=== PATIENT | female | born 1930 | race Caucasian/White ===

== ENCOUNTER 2017-11-08 15:36 | Inpatient (IN) | payer MEDICARE, MEDICAID ==
[~2017-11-08] VITALS: Ht 160 cm; Wt 63.0 kg
[~2017-11-08 15:36] MED LIST: ACET-868 PO; BISA10SU8 RC; CHOL10002 PO; CRAN405C PO; ESOM40CA PO; HYDR-3974 PO; LEVO50TA PO; LISI10TA5 PO; MAGN400O6 PO; MAGN400T6 PO; MULT1TAB11 PO; NA P133E RC; SOLI5TAB2 PO
--- NOTE | 2017-11-08 15:37 | NUR ---
HARMONY FROM HOME DT SOB. PATIENT RECEIVED ON 02 VIA NC @6LPM SATING WELL AT THIS TIME. PATIENT IS CURRENTLY ON ATB. SKIN IS WARM TO TOUCH AND NON DIAPHORETIC. PATIENT IS AFEBRILE. CONNECTED PATIENT TO TELE MONITOR. PENDING MD VARGHESE
[2017-11-08] MEDS ORDERED: ALBUTEROL FS 2.5 MG/3 ML VIAL.NEB ONE (16:00)
[2017-11-08] MEDS ORDERED: IPRATROPIUM NEB FS 0.5 MG/2.5 ML AMPUL.NEB NEB ONE (16:00)
[2017-11-08] MEDS ORDERED: IPRATROPIUM NEB FS 0.5 MG/2.5 ML AMPUL.NEB ONE (16:00)
[2017-11-08] MEDS ORDERED: ALBUTEROL SULFATE 8 GM HFA.AER.AD IH ONE (16:00)
[2017-11-08 16:13] LABS: BASOPHILS % (AUTO) 0.2 % (0.0-2.0); EOSINOPHILS % (AUTO) 0.2 % (0.0-6.0); HEMATOCRIT 36 % (33-45); HEMOGLOBIN 12.4 g/dL (11.5-14.8); LYMPHOCYTES # (AUTO) 1.4 /CMM (0.8-4.8); LYMPHOCYTES % (AUTO) 7.3 % (20.0-44.0); MEAN CORPUSCULAR HGB CONC 34 g/dl (31.0-36.0); MEAN CORPUSCULAR VOLUME 84 fL (82-100); MONOCYTES # (AUTO) 1.4 /CMM (0.1-1.30); MONOCYTES % (AUTO) 7.5 % (2.0-12.0); NEUTROPHILS # (AUTO) 16.1 /CMM (1.8-8.9); NEUTROPHILS % (AUTO) 84.8 % (43.0-81.0); PLATELET COUNT (AUTO) 395 /CMM (150-450); RDW COEFFICIENT OF VARIATION 13.6 (11.5-15.0); RED BLOOD CELL COUNT(AUTO) 4.29 MIL/uL (4.0-5.2); WHITE BLOOD COUNT (AUTO) 18.9 K/uL (4.3-11.0)
[2017-11-08 16:22] LABS: CALCIUM, SERUM 8.6 mg/dL (8.5-10.1); CARBON DIOXIDE 24 mmol/L (21-32); CHLORIDE 101 mmol/L (98-107); GLUCOSE 163 mg/dL (74-106); POTASSIUM 4.1 mmol/L (3.5-5.1); SODIUM SERUM 135 mmol/L (136-145); UREA NITROGEN, BLOOD 45 mg/dL (7-18)
[2017-11-08 16:27] LABS: INR 1.03 (0.85-1.15)
[2017-11-08 16:32] LABS: TROPONIN I < 0.017 ng/mL (0.00-0.056)
[2017-11-08] MEDS ORDERED: CEFTRIAXONE 1 G in IV D5W 50 ML IV ONE (18:00)
[2017-11-08] MEDS ORDERED: AZITHROMYCIN 500 MG in IV D5W 250 ML IV ONE (18:00)
[2017-11-08] MEDS ORDERED: CEFTRIAXONE 1GM BAG (ER ONLY) 50 ML IV ONE (18:07)
--- NOTE | 2017-11-08 18:08 | NUR ---
PAGED DR HONG DIEGO.
--- NOTE | 2017-11-08 18:09 | NUR ---
CALLED NURSING TERMINAL CLERK AND REQUESTED A TELE BED FOR THIS PT.
[2017-11-08] MEDS ORDERED: SENN-167 PO (18:35)
[2017-11-08] MEDS ORDERED: ALBU1.257 IH (18:35)
[2017-11-08] MEDS ORDERED: FAMO20TA8 PO (18:35)
[2017-11-08] MEDS ORDERED: TRAM50TA2 PO (18:35)
[2017-11-08] MEDS ORDERED: ASCO500T9 PO (18:35)
[2017-11-08] MEDS ORDERED: LORA10TA7 PO (18:35)
[2017-11-08] MEDS ORDERED: OXYB5TAB11 PO (18:35)
[2017-11-08] MEDS ORDERED: DOCU250C14 PO (18:35)
[2017-11-08] MEDS ORDERED: GUAI-671 PO (18:35)
--- NOTE | 2017-11-08 18:55 | NUR ---
PT IS ASSIGNED TO MED SURG RM#: [id number], PT IS DIAGNOSED WITH PNEUMONIA, AND DR HONG DIEGO IS THE ACCEPTING MD.
--- NOTE | 2017-11-08 19:17 | NUR ---
GAVE REPORT TO MIGUEL ANGEL POP PNEUMONIA DNR ON POLST FORM DR HONG DIEGO ACCEPTING
--- NOTE | 2017-11-08 19:28 | NUR ---
RECEIVED REPORT FROM DONN OLIVEROS FOR [facility].
[2017-11-08 19:40] VITALS: BP 127/61
--- NOTE | 2017-11-08 19:45 | NUR ---
MS UTILITY AIRCREWMAN NOTES RECEIVED FROM ER PER TAM A/O X2 UNDER THE SERVICE OF DR HONG DIEGO,DIAGNOSIS OF PNEUMONIA,ACCOMPANIED BY SON CHUY AND ZETTA DAUGHTER IN LAW.BREATHING NON LABORED,DOMINISHED ON BOTH LOWER LUNG FIELD.WITH SLIGHT REDNESS NOTED ON LEFT INNER THIGH AND MULTIPLE SKIN TAGS ON HER CHEST,ABDOMEN AND BACK.NOTED PROTRUDING SPOT ON HER ABDOMEN AND ACCORDING TO DR HONG DIEGO, ITS HER HERNIA.SALINE LOCK LEFT HAND INTACT AND PATENT.CLEANED AND KEPT DRY.FALL RISK PER FAMILY,BED ON LOWEST POSITION AND LOCKED.CALL LIGHT IN REACH.NEEDS ANTICIPATED.
[2017-11-08 20:00] VITALS: BP 127/61
[2017-11-08 20:02] LABS: B-TYPE NATRIURETIC PEPTIDE 1189 PG/ML (0-125)
[2017-11-08 20:51] LABS: BILIRUBIN,DIRECT 0.1 mg/dL (0.0-0.2); BILIRUBIN,TOTAL 0.3 mg/dL (0.2-1.0)
[2017-11-08] MEDS ORDERED: GUAIFENESIN/CODEINE 10 ML UDC PO PRN (21:00)
[2017-11-08] MEDS ORDERED: NA PHOS,M-B/NA PHOS,DI-BA 1 EA ENEMA RC PRN (21:00)
[2017-11-08] MEDS ORDERED: MAGNESIUM HYDROXIDE 30 ML UDC PO PRN (21:00)
[2017-11-08] MEDS ORDERED: ACETAMINOPHEN 325 MG TABLET PO PRN (21:00)
[2017-11-08] MEDS ORDERED: ZITHROMAX 500 MG/250 ML D5W IV SCH ×2 (21:00)
[2017-11-08] MEDS ORDERED: TRAMADOL HCL 50 MG TABLET PO PRN (21:00)
[2017-11-08] MEDS ORDERED: BISACODYL SUPP (10 MG) 10 MG/SUPP.RECT SUPP.RECT RC PRN (21:00)
--- NOTE | 2017-11-08 21:10 | NUR ---
MS RN NOTES REPORTED BT LAB,LACTIC ACID WAS 6.3,HIGH COMPARE TO 5.2 IN ER.NO IV CHALLENGE GIVEN.
--- NOTE | 2017-11-08 21:40 | NUR ---
MS RN NOTES DR HONG DIEGO WAS PAGE AND MADE AWARE OF PATIENT CURRENT LACTIC ACID,WITH NEW ORDER TO GIVE NS 1LITER AT 200ML/HR OVER 5 HOURS THE REDUCE RATE TO 100ML/HR RATE FOR HYDRATION
[2017-11-08] MEDS: OXYBUTYNIN CHLORIDE 5 MG TABLET PO SCH (21:45)
[2017-11-08] MEDS: SENNOSIDES 8.6 MG TABLET PO SCH (21:45)
--- NOTE | 2017-11-08 21:45 | NUR ---
MS RN NOTES C/O MODERATE ABDOMINAL PAIN 4/10 ON PAIN SCALE,ULTRAM 50MG PO GIVEN WITH APPLE SAUCE TAKEN WELL.
[2017-11-08] MEDS ORDERED: IV NS 0.9% 1,000 ML IV ONE (22:00)
[2017-11-09] MEDS ORDERED: ALBUTEROL HALF STRENGTH 1.25 MG/3 ML VIAL.NEB IH SCH (01:30)
--- NOTE | 2017-11-09 01:30 | NUR ---
MS RN NOTES SOUND CONGESTED ON AUSCULTATION,BREATHING TREATMENT ADMINISTERED BT RT DON ORDERED PRN.
[2017-11-09] MEDS: IPRATROPIUM NEB FS 0.5 MG/2.5 ML AMPUL.NEB NEB PRN ×2 (01:41→10:19)
[2017-11-09] MEDS: ALBUTEROL FS 2.5 MG/0.5 ML VIAL.NEB NEB PRN ×2 (01:41→10:19)
[2017-11-09] MEDS: ACETAMINOPHEN 325 MG TABLET PO PRN (02:12)
--- NOTE | 2017-11-09 02:12 | NUR ---
MS RN NOTES INCREASE TEMP OF 100.1,TYLENOL 650MG PO GIVEN WITH APPLE SAUCE TAKEN WELL
--- NOTE | 2017-11-09 02:15 | NUR ---
MS RN NOTES WITH ORAL TEMP OF 100.1,TYLENOL 650MG PO GIVEN WITH APPLE SAUCE,TAKEN WELL.
--- NOTE | 2017-11-09 02:17 | NUR ---
MS RN NOTES CALM AND QUIET THIS TIME,CONTINUE WITH COOLING MEASURES.
--- NOTE | 2017-11-09 04:00 | NUR ---
MS RN NOTES ORAL TEMP RE CHECK WAS 98.4
[2017-11-09] MEDS: IV NS 0.9% 1,000 ML IV PRN (04:27)
--- NOTE | 2017-11-09 06:04 | NUR ---
MS RN NOTES NO FEVER THIS TIME,CALM AND QUIET ON BED,REGULAR IVF INFUSING WELL ON LEFT ARM.NO SOB,BREATHING TREATMENT TOLERATED WELL.IN NO ACUTE DISTRESS.DNR/DNI STATUS.CALL LIGHT IN REACH,NEEDS ATTENDED. WILL ENDORSE TO DAY NURSE FOR [facility].
[2017-11-09 06:13] LABS: EOSINOPHILS % (AUTO) 0.2 % (0.0-6.0); HEMATOCRIT 29 % (33-45); HEMOGLOBIN 9.9 g/dL (11.5-14.8); LYMPHOCYTES # (AUTO) 1.2 /CMM (0.8-4.8); LYMPHOCYTES % (AUTO) 7.2 % (20.0-44.0); MEAN CORPUSCULAR HGB CONC 34 g/dl (31.0-36.0); MEAN CORPUSCULAR VOLUME 85 fL (82-100); MONOCYTES % (AUTO) 6.1 % (2.0-12.0); NEUTROPHILS # (AUTO) 14.7 /CMM (1.8-8.9); NEUTROPHILS % (AUTO) 86.5 % (43.0-81.0); PLATELET COUNT (AUTO) 318 /CMM (150-450); RDW COEFFICIENT OF VARIATION 14.3 (11.5-15.0); RED BLOOD CELL COUNT(AUTO) 3.42 MIL/uL (4.0-5.2)
[2017-11-09 06:31] LABS: CALCIUM, SERUM 8.4 mg/dL (8.5-10.1); CARBON DIOXIDE 26 mmol/L (21-32); CHLORIDE 106 mmol/L (98-107); CREATININE 0.7 mg/dL (0.6-1.3); GLUCOSE 123 mg/dL (74-106); SODIUM SERUM 141 mmol/L (136-145); UREA NITROGEN, BLOOD 32 mg/dL (7-18)
--- NOTE | 2017-11-09 07:30 | NUR ---
PT RECEIVED RESTING COMFORTABLY IN BED. NO S/S OR C/O PAIN OR DISTRESS NOTED. SIDE RAILS UP X2, CALL LIGHT LEFT WITHIN REACH. WILL CONTINUE PLAN OF CARE.
[2017-11-09 07:58] VITALS: BP 123/64
[2017-11-09 07:59] LABS: LYMPHOCYTES % (MANUAL) 7 % (16-48); MONOCYTES % (MANUAL) 10 % (0-11.0); NEUTROPHILS % (MANUAL) 83 (42-76)
[2017-11-09] MEDS: MAGNESIUM OXIDE 400 MG TABLET PO SCH (08:15)
[2017-11-09] MEDS: LEVOTHYROXINE SODIUM 50 MCG TABLET PO SCH (08:16)
[2017-11-09] MEDS: FAMOTIDINE (20 MG) 20 MG TABLET PO SCH ×2 (08:16→17:01)
[2017-11-09] MEDS: OXYBUTYNIN CHLORIDE 5 MG TABLET PO SCH ×3 (08:16→21:14)
[2017-11-09] MEDS: MULTIVIT, IRON, MIN NO. 8, FA 1 TAB PO SCH (08:16)
[2017-11-09] MEDS: ASCORBIC ACID 500 MG TABLET PO SCH (08:16)
[2017-11-09] MEDS: DOCUSATE SODIUM 250 MG CAPSULE PO SCH ×2 (08:16→17:01)
[2017-11-09] MEDS: CHOLECALCIFEROL 1,000 UNIT TABLET (VIT D3) PO SCH (08:16)
[2017-11-09] MEDS: LISINOPRIL (10MG) 10 MG TABLET PO SCH (08:16)
[2017-11-09] MEDS: LORATADINE 10 MG TABLET PO SCH (08:16)
[2017-11-09] MEDS ORDERED: SOLIFENACIN SUCCINATE 5 MG TABLET PO SCH (09:00)
[2017-11-09] MEDS ORDERED: Medication Not On Formulary EA (Cranberry Extract (Cranberry) 405 MG) PO SCH (09:00)
[2017-11-09] MEDS: IPRATROPIUM NEB FS 0.5 MG/2.5 ML AMPUL.NEB NEB SCH ×4 (12:00→23:29)
[2017-11-09] MEDS: ALBUTEROL FS 2.5 MG/0.5 ML VIAL.NEB NEB SCH ×4 (12:00→23:28)
[2017-11-09] MEDS: ENSURE ENLIVE 237 ML LIQUID (VANILLA) PO SCH ×2 (13:00→18:44)
[2017-11-09] MEDS: HYDROCODONE/APAP 5/325MG 1 EACH TABLET PO PRN (13:04)
[2017-11-09] MEDS: ENOXAPARIN SODIUM 40 MG/0.4 ML DISP.SYRIN SQ SCH (14:19)
[2017-11-09] MEDS: ACETYLCYSTEINE 10% SOLN 400 MG/4 ML VIAL NEB SCH ×2 (15:28→23:29)
[2017-11-09 15:51] VITALS: BP 137/68
[2017-11-09] MEDS: CEFTRIAXONE 1 G in IV D5W 50 ML IV SCH (17:01)
[2017-11-09] MEDS: ZITHROMAX 500 MG/250 ML D5W IV SCH ×2 (17:43)
--- NOTE | 2017-11-09 18:54 | NUR ---
CHANGE OF SHIFT REPORT PT RESTING COMFORTABLY IN BED. NO S/S OR C/O PAIN OR DISTRESS NOTED. SIDE RAILS UP X2, CALL LIGHT LEFT WITHIN REACH. PT KEPT CLEAN, DRY, AND COMFORTABLE. NO SIGNIFICANT CHANGES SINCE PREVIOUS SHIFT. WILL GIVE REPORT TO [facility] POP.
[2017-11-09 20:00] VITALS: BP 116/59
[2017-11-09] MEDS: SENNOSIDES 8.6 MG TABLET PO SCH ×2 (21:14→21:20)
[2017-11-10] MEDS: IPRATROPIUM NEB FS 0.5 MG/2.5 ML AMPUL.NEB NEB SCH ×6 (03:14→23:18)
[2017-11-10] MEDS: ALBUTEROL FS 2.5 MG/0.5 ML VIAL.NEB NEB SCH ×6 (03:15→23:18)
[2017-11-10 06:05] LABS: BASOPHILS % (AUTO) 0.1 % (0.0-2.0); EOSINOPHILS % (AUTO) 0.8 % (0.0-6.0); HEMATOCRIT 30 % (33-45); LYMPHOCYTES # (AUTO) 1.2 /CMM (0.8-4.8); LYMPHOCYTES % (AUTO) 8.1 % (20.0-44.0); MEAN CORPUSCULAR HGB CONC 34 g/dl (31.0-36.0); MEAN CORPUSCULAR VOLUME 85 fL (82-100); MONOCYTES # (AUTO) 0.9 /CMM (0.1-1.30); MONOCYTES % (AUTO) 5.9 % (2.0-12.0); NEUTROPHILS # (AUTO) 12.2 /CMM (1.8-8.9); NEUTROPHILS % (AUTO) 85.1 % (43.0-81.0); PLATELET COUNT (AUTO) 322 /CMM (150-450); RDW COEFFICIENT OF VARIATION 14.3 (11.5-15.0); RED BLOOD CELL COUNT(AUTO) 3.48 MIL/uL (4.0-5.2); WHITE BLOOD COUNT (AUTO) 14.3 K/uL (4.3-11.0)
[2017-11-10 06:17] LABS: IRON, SERUM 18 ug/dl (50-175); TOTAL IRON BINDING CAPACITY 112 ug/dl (250-450)
[2017-11-10 06:22] LABS: ALANINE AMINOTRANSFERASE 60 U/L (12-78); ALBUMIN 1.8 g/dL (3.4-5.0); ALKALINE PHOSPHATASE 82 U/L (46-116); ASPARTATE AMINOTRANSFERASE 48 U/L (15-37); BILIRUBIN,TOTAL 0.2 mg/dL (0.2-1.0); CALCIUM, SERUM 8.2 mg/dL (8.5-10.1); CARBON DIOXIDE 29 mmol/L (21-32); CHLORIDE 108 mmol/L (98-107); CREATININE 0.6 mg/dL (0.6-1.3); GLUCOSE 101 mg/dL (74-106); MAGNESIUM 2.2 mg/dL (1.8-2.4); PHOSPHORUS 3.6 mg/dL (2.5-4.9); POTASSIUM 3.9 mmol/L (3.5-5.1); SODIUM SERUM 142 mmol/L (136-145); TOTAL PROTEIN, SERUM 5.8 g/dL (6.4-8.2); UREA NITROGEN, BLOOD 17 mg/dL (7-18)
[2017-11-10 06:36] LABS: FERRITIN 380 ng/mL (8-388); THYROID STIMULATING HORMONE 2.386 uIU/mL (0.358-3.74)
--- NOTE | 2017-11-10 06:40 | NUR ---
MS RN NOTES AWAKE & RESPONSIVE. NOT IN ANY DISTRESS. NO SOB NOTED. DENIES ANY PAIN OR DISCOMFORT AT THIS TIME. WITH IVF INFUSING WELL. AM CARE DONE. MONITORED ACCORDINGLY. CALL LIGHT WITHIN REACH. BED IN LOWEST POSITION. SR UP X 3 FOR SAFETY WITH BED ALARM ON. WILL ENDORSE TO NEXT SHIFT.
--- NOTE | 2017-11-10 07:10 | NUR ---
MSRN RN OPENING NOTES. PT RECEIVED A&0X1, AWAKE AND RESTING IN BED. PT WITH O2 VIA NC AT 4LPM, PT AUSCULTATED WITH BI LAT CRACKLES, PT WITH S/S OF RESP DISTRESS AT THIS TIME. PT DENIES PAIN AND IS WITHOUT S/S OF PAIN OR DISCOMFORT. PT WITH IVC AT R FA INTACT AND OPERATIONAL. PT ASSISTED WITH REPOSITIONING. PT REQUESTING MORE SLEEP. BED IN LOWEST LOCKED POSITION WITH HANDRAILSX2 AND CALL [place] WITHIN REACH. WILL REORIENTATE NEEDED. PT BRIEFED ON TODAY'S POC AND IS WITHOUT CONCERN OR COMPLAINT.
--- NOTE | 2017-11-10 07:29 | NUR ---
MSRN NOTES. PT NOTED WITH DRY NON PRODUCTIVE COUGH.
[2017-11-10 08:23] VITALS: BP 133/58
[2017-11-10] MEDS: FAMOTIDINE (20 MG) 20 MG TABLET PO SCH ×2 (08:24→16:47)
[2017-11-10] MEDS: LEVOTHYROXINE SODIUM 50 MCG TABLET PO SCH (08:24)
[2017-11-10] MEDS: MAGNESIUM OXIDE 400 MG TABLET PO SCH (08:27)
[2017-11-10] MEDS: ASCORBIC ACID 500 MG TABLET PO SCH (08:27)
[2017-11-10] MEDS: LISINOPRIL (10MG) 10 MG TABLET PO SCH (08:28)
[2017-11-10] MEDS: LORATADINE 10 MG TABLET PO SCH (08:28)
[2017-11-10] MEDS: DOCUSATE SODIUM 250 MG CAPSULE PO SCH ×2 (08:28→16:48)
[2017-11-10] MEDS: CHOLECALCIFEROL 1,000 UNIT TABLET (VIT D3) PO SCH (08:28)
[2017-11-10] MEDS: MULTIVIT, IRON, MIN NO. 8, FA 1 TAB PO SCH (08:28)
[2017-11-10] MEDS: OXYBUTYNIN CHLORIDE 5 MG TABLET PO SCH ×2 (08:28→21:12)
[2017-11-10] MEDS: ENSURE ENLIVE 237 ML LIQUID (VANILLA) PO SCH ×3 (08:34→17:47)
[2017-11-10] MEDS: ENOXAPARIN SODIUM 40 MG/0.4 ML DISP.SYRIN SQ SCH (08:36)
[2017-11-10] MEDS: ACETYLCYSTEINE 10% SOLN 400 MG/4 ML VIAL NEB SCH ×3 (08:53→23:18)
--- NOTE | 2017-11-10 10:00 | NUR ---
MSRN NOTES. PT REMOVED IVC, COMPRESSION APPLIED. NAD AT SITE. NEW IVC G#22 PLACED AT R FA.
[2017-11-10] MEDS: HYDROCODONE/APAP 5/325MG 1 EACH TABLET PO PRN (12:28)
[2017-11-10 16:32] VITALS: BP 117/56
--- NOTE | 2017-11-10 17:00 | NUR ---
MSRN NOTES. [facility] CALLED R/T PT ABDOMINAL DISTENSION, 1 EPISODE OF ABDOMINAL PAIN AND NO DOCUMENTED BM FOR 6 DAYS. AWAITING RESPONSE.
[2017-11-10] MEDS: CEFTRIAXONE 1 G in IV D5W 50 ML IV SCH (17:08)
[2017-11-10] MEDS: ZITHROMAX 500 MG/250 ML D5W IV SCH ×2 (17:46)
--- NOTE | 2017-11-10 18:06 | NUR ---
MSRN NOTES. MD GLYNN RETURNED CALL AND INFORMED OF PT STATUS, MD REQUESTING AM KUB, ORDERS PLACED.
--- NOTE | 2017-11-10 18:07 | NUR ---
MSRN CLOSING NOTES. PT REMAINS A&0X1, BUT PT'S CONVERSATION HAS IMPROVED THROUGHOUT SHIFT. PT RESTING WITH FAMILY AT BEDSIDE. PT WITH O2 VIA NC AT 4LPM NO S/S OF RESP DISTRESS, PT DENIES PAIN AT THIS TIME. PT IS WITHOUT BM, NO OB STOOL COLLECTED, PRN LAX ADMINISTERED, WILL ENDORSE TO NIGHT NURSE. PT IVC INTACT AND OPERATIONAL. PT BED IN LOWEST LOCKED POSITION WITH HANDRAILSX2 AND CALL [place] WITHIN REACH. ALL DAY NURSE DUTIES ATTENDED TO AND PT IS WITHOUT CONCERN OR COMPLAINT.
--- NOTE | 2017-11-10 19:30 | NUR ---
RN INITIAL NOTES: RECEIVED REPORT FROM [facility], PT IN BED, AWAKE, A/O X1, TO SELF ONLY, PT A POOR HISTORIAN, ON 2L VIA NC RESPIRATION EVEN AND UNLABORED, PT APPEARS CALM AND COMFORTABLE. PT TO BE ON HOB 45 DEGREE AT ALL TIMES, DUE TO ABDOMINAL HERNIA, AND RISK FOR ASPIRATION. IV ACCESS PATENT AND FLUSHING WELL, INFUSING WITH NS AT 100ML/HR. SITE COVERED WITH BROWN SLEEVES FOR PROTECTION. PT REPORTED TO HAVE NO BM X6 DAYS, MOM GIVEN DURING THE DAY, AWARE, WILL HAVE KUB IN AM, PER RADIOLOGY NO NEED TO PUT PT ON NPO AFTER MIDNIGHT THIS IS JUST REGULAR KUB NO CONTRAST. BED ALARM SECURED. SAFETY PRECAUTIONS FOR FALL INITIATED. CALL LIGHT IN REACH, WILL CONTINUE MONITORING PT.
--- NOTE | 2017-11-10 19:38 | NUR ---
rn notes: hyperactive bowel sound noted upon auscultation of the abdomen, abdomen is distended, semi hard, will monitor for any bowel movement
[2017-11-10 20:00] VITALS: BP 131/68
--- NOTE | 2017-11-10 20:14 | NUR ---
RN NOTES: PT HAD BOWEL MOVEMENT, LARGE, STOOL SPECIMEN COLLECTED, CONTACTED LAB TO SOURCER THE SPECIMEN.
[2017-11-10 20:17] VITALS: BP 131/68
[2017-11-10] MEDS: MUPIROCIN OINT 2% 22 GM TUBE SCH (21:12)
[2017-11-10 21:20] LABS: OCCULT BLOOD STOOL NEGATIVE (NEGATIVE)
[2017-11-10 21:32] VITALS: BP 141/67
[2017-11-10] MEDS: SENNOSIDES 8.6 MG TABLET PO SCH (22:00)
--- NOTE | 2017-11-10 22:00 | NUR ---
RN NOTES: PLACED PT ON PULSE OX MONITORING, SPO2 96% ON 3L VIA NC, RESPIRATION EVEN AND UNLABORED, WITH PERIODIC EPISODE OF NON PRODUCTIVE COUGH
[2017-11-11 00:17] VITALS: BP 154/78
[2017-11-11] MEDS: HYDROCODONE/APAP 5/325MG 1 EACH TABLET PO PRN ×2 (00:21→20:10)
--- NOTE | 2017-11-11 00:22 | NUR ---
prn norco: pt noted to be crying , uneasy, squirming,holding onto her abdomen area pt is confused a/o x1 to self online, used tay harris obtained score of 6, prn norco 5/325 mg administered at this time. pt on aspiration protocol, hob 45 degree, no aspiration noted.
--- NOTE | 2017-11-11 00:30 | NUR ---
RN NOTES: PT HAD ANOTHER LARGE BM, BED BATH PROVIDED TO THE PT, Z GUARD APPLIED TO PERINEAL AREA, GROIN AND SACRAL, MEPILEX APPLIED TOO FOR PROTECTION PT USES DIAPER
--- NOTE | 2017-11-11 00:43 | NUR ---
RN NOTES: PT NOTED TO BE MOUTH BREATHER, SPO2 91% ON 3L VIA NC, SWITCH TO SIMPLE MASK WITH HUMIDIFIER, SPO2 NOW 92-94%, MEPILEX APPLIED ON CHEEK AREA TO PREVENT BARNES FROM STRING OF SIMPLE MASK.
--- NOTE | 2017-11-11 02:00 | NUR ---
RN NOTES: SEEN PT SLEEPING, APPEARS COMFORTABLE, RESPIRATION EVEN AND UNLABORED, NO FACIAL GRIMACE NOTED, WILL MONITOR FOR ANY CHANGES
[2017-11-11] MEDS: IPRATROPIUM NEB FS 0.5 MG/2.5 ML AMPUL.NEB NEB SCH ×5 (02:37→19:36)
[2017-11-11] MEDS: ALBUTEROL FS 2.5 MG/0.5 ML VIAL.NEB NEB SCH ×5 (02:37→19:36)
--- NOTE | 2017-11-11 03:30 | NUR ---
RN NOTES: NOTED SPO2 STABLE AT 96% 6L SIMPLE MASK, TITRATE OXYGEN, SWITCH TO NASAL CANNULA AT 4L WITH HUMIDIFIER IN PLACED. MEPILEX STILL INTACT FOR PROTECTION FROM NASAL CANNULA TUBING ON PT'S CHEEKS.
--- NOTE | 2017-11-11 06:47 | NUR ---
RN CLOSING NOTES: PT IN BED, NOW ON 4L VIA NC, RESPIRATION EVEN AND UNLABORED, APPEARS CALM AND COMFORTABLE. NO FACIAL GRIMACE NOTED. IV ACCESS REMAINS PATENT AND FLUSHING WELL, WITH ONGOING IVF ORDERED. BLE OFFLOADED. VS REMAINS STABLE, NEEDS ATTENDED. SAFETY PRECAUTIONS FOR FALL REMAINS ENGAGED, CALL LIGHT IN REACH. WILL ENDORSE TO DAY RN FOR [facility]
--- NOTE | 2017-11-11 07:30 | NUR ---
RN MS NOTES PT IN BED, AWAKE, ALERT TO SELF, NO FACIAL GRIMACING OR MOANING, RESPIRATIONS NORMAL, KEPT HOB ELEVATED, CALL LIGHT WITHIN REACH, BREATHING TREATMENT GIVEN BY RT ORDERED, KEPT COMFORTABLE IN BED.
[2017-11-11] MEDS: ACETYLCYSTEINE 10% SOLN 400 MG/4 ML VIAL NEB SCH ×2 (07:31→15:06)
[2017-11-11 08:00] VITALS: BP 124/67
[2017-11-11] MEDS: ASCORBIC ACID 500 MG TABLET PO SCH (08:41)
[2017-11-11] MEDS: DOCUSATE SODIUM 250 MG CAPSULE PO SCH ×2 (08:41→16:49)
[2017-11-11] MEDS: LORATADINE 10 MG TABLET PO SCH (08:41)
[2017-11-11] MEDS: OXYBUTYNIN CHLORIDE 5 MG TABLET PO SCH ×2 (08:41→21:14)
[2017-11-11] MEDS: CHOLECALCIFEROL 1,000 UNIT TABLET (VIT D3) PO SCH (08:41)
[2017-11-11] MEDS: FAMOTIDINE (20 MG) 20 MG TABLET PO SCH ×2 (08:41→16:49)
[2017-11-11] MEDS: LEVOTHYROXINE SODIUM 50 MCG TABLET PO SCH (08:41)
[2017-11-11] MEDS: LISINOPRIL (10MG) 10 MG TABLET PO SCH (08:42)
[2017-11-11] MEDS: MULTIVIT, IRON, MIN NO. 8, FA 1 TAB PO SCH (08:42)
[2017-11-11] MEDS: ENOXAPARIN SODIUM 40 MG/0.4 ML DISP.SYRIN SQ SCH (08:45)
[2017-11-11] MEDS: MAGNESIUM OXIDE 400 MG TABLET PO SCH (08:46)
[2017-11-11] MEDS: ENSURE ENLIVE 237 ML LIQUID (VANILLA) PO SCH ×3 (08:49→17:53)
[2017-11-11] MEDS: MUPIROCIN OINT 2% 22 GM TUBE SCH ×2 (08:50→21:14)
[2017-11-11] MEDS: ACETAMINOPHEN 325 MG TABLET PO PRN (09:00)
--- NOTE | 2017-11-11 13:26 | NUR ---
RN MS NOTES DR. MAGANA MADE AWARE OF PT'S KUB RESULTS, NO NEW ORDER GIVEN, PT WITH NO COMPLAINT OF ABDOMINAL PAIN OR DISCOMFORT, NO N/V, TOLERATING CURRENT DIET, WILL CONTINUE TO MONITOR.
[2017-11-11 16:00] VITALS: BP 134/78
[2017-11-11] MEDS: IV NS 0.9% 1,000 ML IV PRN (16:48)
[2017-11-11] MEDS: CEFTRIAXONE 1 G in IV D5W 50 ML IV SCH (16:48)
[2017-11-11] MEDS ORDERED: LACTOBACILLUS RHAMNOSUS GG 1 EACH CAP.SPRINK PO SCH (17:00)
[2017-11-11] MEDS: ZITHROMAX 500 MG/250 ML D5W IV SCH ×2 (17:53)
--- NOTE | 2017-11-11 18:42 | NUR ---
RN MS NOTES PT IN BED, AWAKE, ALERT, WATCHING TV, DENIES PAIN OR ANY DISCOMFORT, NO SOB, ON O2 AT 3LPM VIA N/C, KEPT HOB ELEVATED, ASSISTED WITH MEALS, ASPIRATION PRECAUTIONS OBSERVED, PM MEDS GIVEN, PM CARE RENDERED, ASSISTED IN TURNING AND REPOSITIONING, ALL NEEDS ATTENDED.
[2017-11-11 19:59] VITALS: BP 140/73
[2017-11-11] MEDS: SENNOSIDES 8.6 MG TABLET PO SCH (21:14)
[2017-11-12] MEDS: IPRATROPIUM NEB FS 0.5 MG/2.5 ML AMPUL.NEB NEB SCH ×7 (00:07→22:44)
[2017-11-12] MEDS: ALBUTEROL FS 2.5 MG/0.5 ML VIAL.NEB NEB SCH ×7 (00:07→22:44)
[2017-11-12] MEDS: ACETYLCYSTEINE 10% SOLN 400 MG/4 ML VIAL NEB SCH ×4 (00:07→22:44)
[2017-11-12 05:35] LABS: BASOPHILS % (AUTO) 0.1 % (0.0-2.0); EOSINOPHILS % (AUTO) 2.3 % (0.0-6.0); HEMATOCRIT 30 % (33-45); HEMOGLOBIN 10.1 g/dL (11.5-14.8); LYMPHOCYTES # (AUTO) 1.6 /CMM (0.8-4.8); LYMPHOCYTES % (AUTO) 11.8 % (20.0-44.0); MEAN CORPUSCULAR HGB CONC 34 g/dl (31.0-36.0); MEAN CORPUSCULAR VOLUME 85 fL (82-100); MONOCYTES # (AUTO) 0.8 /CMM (0.1-1.30); MONOCYTES % (AUTO) 6.1 % (2.0-12.0); NEUTROPHILS # (AUTO) 10.9 /CMM (1.8-8.9); NEUTROPHILS % (AUTO) 79.7 % (43.0-81.0); PLATELET COUNT (AUTO) 320 /CMM (150-450); RDW COEFFICIENT OF VARIATION 14.1 (11.5-15.0); RED BLOOD CELL COUNT(AUTO) 3.54 MIL/uL (4.0-5.2); WHITE BLOOD COUNT (AUTO) 13.6 K/uL (4.3-11.0)
[2017-11-12 05:49] LABS: ALANINE AMINOTRANSFERASE 53 U/L (12-78); ALBUMIN 1.7 g/dL (3.4-5.0); ALKALINE PHOSPHATASE 67 U/L (46-116); ASPARTATE AMINOTRANSFERASE 31 U/L (15-37); BILIRUBIN,TOTAL 0.2 mg/dL (0.2-1.0); CALCIUM, SERUM 8.2 mg/dL (8.5-10.1); CARBON DIOXIDE 32 mmol/L (21-32); CHLORIDE 106 mmol/L (98-107); CREATININE 0.6 mg/dL (0.6-1.3); GLUCOSE 104 mg/dL (74-106); MAGNESIUM 2.7 mg/dL (1.8-2.4); PHOSPHORUS 3.5 mg/dL (2.5-4.9); POTASSIUM 4.1 mmol/L (3.5-5.1); SODIUM SERUM 141 mmol/L (136-145); TOTAL PROTEIN, SERUM 5.6 g/dL (6.4-8.2); UREA NITROGEN, BLOOD 16 mg/dL (7-18)
[2017-11-12] MEDS: IV NS 0.9% 1,000 ML IV PRN (05:52)
--- NOTE | 2017-11-12 07:43 | NUR ---
RN MS NOTES PT IN BED, ASLEEP, EASY TO AROUSE, ALERT TO SELF, NO FACIAL GRIMACING OR MOANING, DENIES PAIN, RESPIRATIONS NORMAL, ON O2 VIA N/C, CALL LIGHT WITHIN REACH, IV FLUIDS INFUSING WELL, KEPT WARM AND COMFORTABLE.
[2017-11-12 08:00] VITALS: BP_SYST 103; BP_SYST 144; BP_DIAS 46; BP_DIAS 86
[2017-11-12] MEDS: MAGNESIUM OXIDE 400 MG TABLET PO SCH (09:16)
[2017-11-12] MEDS: LORATADINE 10 MG TABLET PO SCH (09:16)
[2017-11-12] MEDS: MULTIVIT, IRON, MIN NO. 8, FA 1 TAB PO SCH (09:17)
[2017-11-12] MEDS: CHOLECALCIFEROL 1,000 UNIT TABLET (VIT D3) PO SCH (09:17)
[2017-11-12] MEDS: FAMOTIDINE (20 MG) 20 MG TABLET PO SCH ×2 (09:17→16:30)
[2017-11-12] MEDS: DOCUSATE SODIUM 250 MG CAPSULE PO SCH ×2 (09:17→16:30)
[2017-11-12] MEDS: ASCORBIC ACID 500 MG TABLET PO SCH (09:17)
[2017-11-12] MEDS: LEVOTHYROXINE SODIUM 50 MCG TABLET PO SCH (09:17)
[2017-11-12] MEDS: OXYBUTYNIN CHLORIDE 5 MG TABLET PO SCH ×2 (09:17→20:17)
[2017-11-12] MEDS: LISINOPRIL (10MG) 10 MG TABLET PO SCH (09:17)
[2017-11-12] MEDS: ENSURE ENLIVE 237 ML LIQUID (VANILLA) PO SCH ×3 (09:18→17:07)
[2017-11-12] MEDS: MUPIROCIN OINT 2% 22 GM TUBE SCH ×2 (09:18→20:24)
[2017-11-12] MEDS: ENOXAPARIN SODIUM 40 MG/0.4 ML DISP.SYRIN SQ SCH (09:24)
--- NOTE | 2017-11-12 12:55 | NUR ---
RN MS NOTES PT IN BED, ASLEEP, EASY TO AROUSE, ALERT AND VERBALLY RESPONSIVE, PT SEEN BY DR. MAGANA, PER , OK TO D/C IVF, PT TOLERATING CURRENT DIET WELL, ASSISTED WITH MEALS, ASPIRATION PRECAUTIONS PROVIDED, NEEDS ATTEDED.
[2017-11-12 16:00] VITALS: BP 119/71
[2017-11-12] MEDS: CEFTRIAXONE 1 G in IV D5W 50 ML IV SCH (16:30)
[2017-11-12] MEDS: HYDROCODONE/APAP 5/325MG 1 EACH TABLET PO PRN ×2 (16:52→23:46)
[2017-11-12] MEDS: ZITHROMAX 500 MG/250 ML D5W IV SCH ×2 (17:07)
--- NOTE | 2017-11-12 18:18 | NUR ---
RN MS NOTES PT IN BED, AWAKE, ALERT TO SELF, WATCHING TV, NO COMPLAINT OF PAIN AT THIS TIME, RESPIRATIONS NORMAL, PM CARE RENDERED, PM MEDS GIVEN, ASSISTED WITH MEALS, ASSISTED IN TURNING AND REPOSITIONING, ALL NEEDS ATTENDED.
--- NOTE | 2017-11-12 19:30 | NUR ---
MS RN INITIAL NOTE PT IS IN BED AWAKE, A/O X1. COUGH NOTED. NO SIGNS OF SOB OR DISTRESS ON NC 2L TOLERATING WELL. BREATHING TX Q4. IV ACCESS IS INTACT AND PATENT, FLUIDS D/C'D. BED IS IN LOW AND LOCKED POSITION, BED ALARM IS ON. WILL CONTINUE TO MONITOR PT
[2017-11-12 20:00] VITALS: BP 157/82
[2017-11-12] MEDS: SENNOSIDES 8.6 MG TABLET PO SCH (21:14)
[2017-11-12 21:30] VITALS: BP 145/72
[2017-11-13] MEDS: ALBUTEROL FS 2.5 MG/0.5 ML VIAL.NEB NEB SCH ×4 (02:31→16:03)
[2017-11-13] MEDS: IPRATROPIUM NEB FS 0.5 MG/2.5 ML AMPUL.NEB NEB SCH ×4 (02:31→16:03)
[2017-11-13 06:27] LABS: BASOPHILS % (AUTO) 0.2 % (0.0-2.0); EOSINOPHILS % (AUTO) 3.1 % (0.0-6.0); HEMATOCRIT 31 % (33-45); HEMOGLOBIN 10.5 g/dL (11.5-14.8); LYMPHOCYTES # (AUTO) 1.7 /CMM (0.8-4.8); LYMPHOCYTES % (AUTO) 14.8 % (20.0-44.0); MEAN CORPUSCULAR HGB CONC 34 g/dl (31.0-36.0); MEAN CORPUSCULAR VOLUME 86 fL (82-100); MONOCYTES # (AUTO) 0.8 /CMM (0.1-1.30); MONOCYTES % (AUTO) 7.2 % (2.0-12.0); NEUTROPHILS # (AUTO) 8.5 /CMM (1.8-8.9); NEUTROPHILS % (AUTO) 74.7 % (43.0-81.0); PLATELET COUNT (AUTO) 307 /CMM (150-450); RED BLOOD CELL COUNT(AUTO) 3.64 MIL/uL (4.0-5.2); WHITE BLOOD COUNT (AUTO) 11.4 K/uL (4.3-11.0)
--- NOTE | 2017-11-13 06:35 | NUR ---
MS RN CLOSING NOTES PT IS IN BED SLEEPING, EASILY AROUSED. NO SIGNS OF SOB OR DISTRESS, BREATHING EVENLY AND UNLABORED ON 3L NC. NO ACUTE CHANGES THROUGHOUT THE SHIFT. ALL NEEDS WERE ANTICIPATED AND MET. BED IS IN LOW AND LOCKED POSITION, BED ALARM IS ON. WILL ENDORSE TO DAYSHIFT.
[2017-11-13 07:01] LABS: ALANINE AMINOTRANSFERASE 47 U/L (12-78); ALBUMIN 1.8 g/dL (3.4-5.0); ALKALINE PHOSPHATASE 61 U/L (46-116); ASPARTATE AMINOTRANSFERASE 30 U/L (15-37); BILIRUBIN,TOTAL 0.3 mg/dL (0.2-1.0); CALCIUM, SERUM 8.2 mg/dL (8.5-10.1); CARBON DIOXIDE 31 mmol/L (21-32); CHLORIDE 103 mmol/L (98-107); CREATININE 0.6 mg/dL (0.6-1.3); GLUCOSE 99 mg/dL (74-106); PHOSPHORUS 3.5 mg/dL (2.5-4.9); POTASSIUM 3.9 mmol/L (3.5-5.1); SODIUM SERUM 138 mmol/L (136-145); TOTAL PROTEIN, SERUM 5.9 g/dL (6.4-8.2); UREA NITROGEN, BLOOD 16 mg/dL (7-18)
[2017-11-13] MEDS: ACETYLCYSTEINE 10% SOLN 400 MG/4 ML VIAL NEB SCH ×2 (07:39→16:03)
--- NOTE | 2017-11-13 07:40 | NUR ---
MS RN OPENING NOTE PT IS IN BED AWAKE, A/O X1. NO SIGNS OF SOB OR DISTRESS ON NC 2L TOLERATING WELL, NOTED WITH OCCASIONAL COUGH. BREATHING TX Q4. IV ACCESS IS INTACT AND PATENT, NO REDNESS OR INFILTRATION NOTED. BED IS IN LOW AND LOCKED POSITION, BED ALARM AND SAFETY MEASURES IN PLACE. WILL CONTINUE TO MONITOR
[2017-11-13 08:00] VITALS: BP 146/70
[2017-11-13] MEDS: MAGNESIUM OXIDE 400 MG TABLET PO SCH (08:43)
[2017-11-13] MEDS: ENSURE ENLIVE 237 ML LIQUID (VANILLA) PO SCH ×2 (08:43→13:28)
[2017-11-13] MEDS: CHOLECALCIFEROL 1,000 UNIT TABLET (VIT D3) PO SCH (08:43)
[2017-11-13] MEDS: MULTIVIT, IRON, MIN NO. 8, FA 1 TAB PO SCH (08:43)
[2017-11-13] MEDS: ASCORBIC ACID 500 MG TABLET PO SCH (08:43)
[2017-11-13] MEDS: DOCUSATE SODIUM 250 MG CAPSULE PO SCH ×2 (08:44→16:51)
[2017-11-13] MEDS: LORATADINE 10 MG TABLET PO SCH (08:44)
[2017-11-13] MEDS: OXYBUTYNIN CHLORIDE 5 MG TABLET PO SCH (08:44)
[2017-11-13] MEDS: LISINOPRIL (10MG) 10 MG TABLET PO SCH (08:44)
[2017-11-13] MEDS: LEVOTHYROXINE SODIUM 50 MCG TABLET PO SCH (08:44)
[2017-11-13] MEDS: ENOXAPARIN SODIUM 40 MG/0.4 ML DISP.SYRIN SQ SCH (08:46)
[2017-11-13] MEDS: MUPIROCIN OINT 2% 22 GM TUBE SCH (08:48)
[2017-11-13] MEDS: FAMOTIDINE (20 MG) 20 MG TABLET PO SCH ×2 (09:00→16:30)
--- NOTE | 2017-11-13 15:00 | NUR ---
RN NOTES PATIENT WITH DISCHARGE ORDERS, PT TO GO TO [facility], [place], PT TO CONTINUE IV ATB UNTIL 6 IV SITE TO REMAIN IN PLACE , PICTURES OF SKIN IN CHART SON CHUY SHANNON WILL CONTINUE TO ASSIST WITH DISCHARGE PROCESS
[2017-11-13 16:00] VITALS: BP 135/70
--- NOTE | 2017-11-13 17:15 | NUR ---
MS BACK PANEL PADDER NOTE PT IS IN BED AWAKE, A/O X1. NO SIGNS OF SOB OR DISTRESS ON NC 2L TOLERATING WELL, NOTED WITH OCCASIONAL COUGH. BREATHING TX Q4. IV ACCESS IS INTACT AND PATENT, NO REDNESS OR INFILTRATION NOTED TO REMAIN IN PLACE PT TO CONTINUE IV ATB UNTIL 11/18/17 ID BAND REMOVED. ALL DISCHARGE INSTRUCTIONS REVIEWED WITH SON, CHUY, AND SNF RN WITH NOTED VERBAL UNDERSTANDING. REPORT GIVEN TO EMT FOR CONTINUITY OF CARE.PATIENT DISCHARGED IN STABLE CONDITION
== END 2017-11-13 17:15 | DRG 871 ==
LOC: ER 15:39 → TELE2 19:04 → MEDSG2 20:29
PROVIDERS: ADMIT Internal Medicine Nephrology; ATTEND Internal Medicine
DX: A41.9 Sepsis, unspecified organism (principal); J18.9 Pneumonia, unspecified organism; J96.00 Acute respiratory failure, unspecified whether with hypoxia or hypercapnia; G93.40 Encephalopathy, unspecified; F03.90 Unspecified dementia, unspecified severity, without behavioral disturbance, psychotic disturbance, mood disturbance, and anxiety; I10 Essential (primary) hypertension; Z91.81 History of falling; R53.1 Weakness; Z66 Do not resuscitate; Z79.899 Other long term (current) drug therapy; E03.9 Hypothyroidism, unspecified; D64.9 Anemia, unspecified; K21.9 Gastro-esophageal reflux disease without esophagitis; N32.81 Overactive bladder
CPT/HCPCS: 36415; 71045-TC; 74018; 80048-TC; 80053-TC; 82247-TC; 82248-TC; 82272-TC; 82728-TC; 82746; 83540-TC; 83605-TC; 83735-TC; 83880; 84100-TC; 84443-TC; 84484-TC; 85025-TC; 85730-TC; 87040-TC; 87081-TC; 92526; 92611-TC; 94762-TC; 94799-TC; A4606; A4624; J0456; J0696; J1650; J7030; J7060; Z7610

== ENCOUNTER 2020-03-15 20:52 | Emergency (ER) | payer MEDICARE, OTHER ==
[~2020-03-15] VITALS: Ht 170.2 cm; Wt 74.8 kg
[~2020-03-15 20:52] MED LIST changes: +ALBU1.257 IH; +AMIN30LI27 PO; +ASCO-352 PO; +CEPH250C PO; -CHOL10002 PO; +CHOL100044 PO; -CRAN405C PO; +DIPH25CA51 PO; +DOCU250C14 PO; -ESOM40CA PO; +FAMO20TA8 PO; -HYDR-3974 PO; +IPRA0.2S9 IH; -LISI10TA5 PO; +LORA10TA7 PO; -MAGN400T6 PO; +MAGN400T8 PO; +METO25TA20 PO; +MULT-24 PO; -MULT1TAB11 PO; +RIVA10TA PO; +SENN-261 PO; -SOLI5TAB2 PO
--- NOTE | 2020-03-15 21:17 | NUR ---
ALEK FROM SNF TO ER BED 13.AWAKE BUT CONFUSED. NOT IN RESP DISTRESS. BROUGHT ON FOR EVALUATION FOR HER R SHOULDER FOR POSSIBLE DISLOCATION. PT IS NOT NOTED RAÚL BE HAVING ANY PAIN AT THIS TIME. PA WAS AT THE BEDSIDE FOR EVAL. ORDERS RECEIVED NOTED AND CARRIED OUT
--- NOTE | 2020-03-15 21:55 | NUR ---
CALLED [facility] 2330 HOURS, TRIP#[phone]
--- NOTE | 2020-03-15 23:36 | NUR ---
[id number] AT BEDSIDE FOR PT TRANSPORT BACK TO HER FACILITY. REPORT GIVEN. PT IS IN STABLE CONDITION FOR TRANSPORT.
[2020-03-15 23:55] VITALS: BP 127/79
--- NOTE | 2020-03-15 23:55 | NUR ---
PT LEFT ON GURNEY WITH EMT AND RN AT BEDSIDE W/ AMBULANCE STAFF. PT IS ON STABLE CONDITION. NAD NOTED
== END 2020-03-15 23:56 | disposition home or self-care (01) ==
LOC: ER 20:54
DX: S42.211A Unspecified displaced fracture of surgical neck of right humerus, initial encounter for closed fracture (principal); F03.90 Unspecified dementia, unspecified severity, without behavioral disturbance, psychotic disturbance, mood disturbance, and anxiety; I10 Essential (primary) hypertension; K21.9 Gastro-esophageal reflux disease without esophagitis; E03.9 Hypothyroidism, unspecified; Z96.652 Presence of left artificial knee joint; Z88.1 Allergy status to other antibiotic agents; Z79.899 Other long term (current) drug therapy; Z86.73 Personal history of transient ischemic attack (TIA), and cerebral infarction without residual deficits; W19.XXXA Unspecified fall, initial encounter; Y93.89 Activity, other specified; Y92.89 Other specified places as the place of occurrence of the external cause; Y99.8 Other external cause status
CPT/HCPCS: 73030-TC